=== PATIENT | male | born 1950 | race Hispanic/Latino ===

== ENCOUNTER 2018-12-25 08:22 | Day surgery (SDC) | payer MEDICARE, BC ==
[2018-12-25] MEDS ORDERED: ATROPINE IV ONE (08:56)
[2018-12-25] MEDS ORDERED: ATROPINE 0.1% (CARDIAC) ONE (09:22)
[2018-12-25 09:26] LABS: BUN/Creatinine Ratio 18; Blood Urea Nitrogen 22 mg/dL (9-20); Calcium 9.5 mg/dL (8.4-10.2); Hemolysis Index 39
[2018-12-25] MEDS ORDERED: ATROPINE 0.1% (CARDIAC) IV NR (10:00)
[2018-12-25] MEDS ORDERED: LOPRESSOR IV NR (10:30)
[2018-12-25] MEDS ORDERED: NITROSTAT SL NR (10:30)
[2018-12-25 10:50] VITALS: BP 110/73
--- NOTE | 2018-12-25 13:25 | Cat Scan Report ---
LIMITED CTA CHEST Indication: Limited evaluation of the chest associated with cardiac CTA exam. Technique: Arterial phase technique utilized to evaluate the carotid arteries. Please refer to the of ficial cardiac CTA report for contrast details. All CT scans at this location are performed using CT dose reduction for ALARA by means of automated exposure control. Findings: No pathologic adenopathy. Visualized lungs are clear. There are degenerative changes in the spine with no acute osseous abnormality. Limited imaging through the upper abdomen shows nothing acute. Impression: No significant incidental finding. Signer Name: Sandeep Hendrix Jr, MD Signed: 12/25/2018 1:21 PM Workstation Name: [id number]
--- NOTE | 2018-12-25 18:28 | CT Calcium Scoring Report ---
Coronary Calcium Score Date of service: 12/25/18 Procedure: High-resolution computed tomographic imaging of the chest was performed on12/25/18 with particular attention paid to the coronary arteries. Images from the examination were analyzed for the presence and extent of coronary artery calcification, using coronary calcium quantification software. The patient tolerated the procedure well and there were no complications. The results of the coronary calcification analysis are provided below. The patient scores are compared with published data related to scores for people of a similar age and the same gender. - Findings Findings: Cardiac CTA Indication: coronary artery calcium score greater than 400. Abnormal vasodilator stress test Informed consent obtained Procedure: The patient was brought to the cardiac ct laboratory at [facility] in stable condition after a 4 hour fast. Heart rate was regulated by beta blockade. Sublingual ngt was administered. Left ventricular function was assessed by the threshold based volumetric segmentation approach. A separate radiology assessment of the non cardiac structures in the field of view will be provided. Superior vena cava in the field of view appears normal Inferior vena cava in the filed of view appears normal Ascending aorta in the field of view appears mildly dilated: 3.7 cm at the level of the main pulmonary artery. 4.2 cm at the sinuses of valsalva. Descending aorta in the field of view appears normal Pulmonary artery in the filed of view appears normal Pulmonary veins enter the left atrium appropriately Left ventricle appears normal Right Ventricle appears normal Left atrium appears normal Left atrial appendage appears normal Right atrium appears normal Interventricular septum appears normal Interatrial septum appears normal Aortic valve appears normal Mitral Valve appears normal Intracardiac mass: none Pericardial effusion: none Coronary Angiography: Dominance: co dominant Origins: normal Left main: normal Left anterior descending coronary artery and diagonal branches contain diffuse non obstructive calcific plaque Circumflex coronary artery and obtuse marginal branches contain diffuse non obstructive calcific plaque Right coronary artery contains diffuse non obstructive calcific plaque Left ventriculography demonstrates normal systolic wall thickening. The left ventricular ejection fraction is 52% Summary: non obstructive calcific plaque in all three coronary arteries in this co-dominate system. Mildly dilated ascending aorta. The procedure was tolerated well. There were no procedural complications.
== END 2018-12-25 10:05 | disposition home or self-care (01) ==
LOC: CATHLABREC 08:22 → EDSTATUS 09:45 → CATHLABREC 10:05
PROVIDERS: ATTEND Internal Medicine
DX: I25.10 Atherosclerotic heart disease of native coronary artery without angina pectoris (principal); R94.39 Abnormal result of other cardiovascular function study; R93.1 Abnormal findings on diagnostic imaging of heart and coronary circulation; I77.819 Aortic ectasia, unspecified site; E78.00 Pure hypercholesterolemia, unspecified; I10 Essential (primary) hypertension; Z79.82 Long term (current) use of aspirin; Z79.899 Other long term (current) drug therapy
CPT/HCPCS: 36415; 75574; 80048; J0461; Q9967